=== PATIENT | male | born 1960 | race Caucasian/White ===

== ENCOUNTER 2022-01-19 08:53 | Emergency (ER) | payer MEDICAID, OTHER ==
[~2022-01-19] VITALS: Ht 162.6 cm; Wt 122.0 kg
[2022-01-19 09:04] VITALS: BP 126/81
[2022-01-19] MEDS ORDERED: TETRACAINE 0.5% OPHTH DROPS 4ML BOTHEYE ONE (10:45)
[2022-01-19] MEDS ORDERED: FLUORESCEIN SODIUM 1MG/STRIP LEFTEYE ONE (10:45)
== END 2022-01-19 13:06 | disposition home or self-care (01) ==
LOC: ER 09:36
DX: H33.22 Serous retinal detachment, left eye (principal); E78.00 Pure hypercholesterolemia, unspecified
CPT/HCPCS: 99283